=== PATIENT | female | born 1970 | race Hispanic/Latino ===

== ENCOUNTER 2018-09-24 08:32 | Outpatient (CLI) | payer BC ==
--- NOTE | 2018-09-25 13:36 | Magnetic Resonance Report ---
BILATERAL BREAST MRI WITHOUT AND WITH CONTRAST: 09/24/18 08:32:00 CLINICAL: High risk for breast cancer because of family history. COMPARISON:09/13/18 screening mammogram. TECHNIQUE: Axial 1.0-mm T1 without, axial high resolution 2.0-mm T2 and axial 1.0-mm dynamic Vibrant high-resolution postcontrast T1 fat saturation sequences on a 1.5 Sandra magnet. The examination was performed with an 8 channel dedicated [place] breast coil. Post processing with CAD and subtraction was performed on an [employer] workstation. 15.0 cc of Multihance was injected without incident for the contrast portion of the exam. Consent was obtained prior to the administration of the contrast. FINDINGS: Right: Moderate background parenchymal enhancement. An oval smooth T2 hyperintense nonenhancing mass at 9 o'clock approximately 9 cm from the nipple measures 1.2 x 0.8 x 1.3 cm and correlates with a mammographic mass. No suspicious mass or suspicious enhancement. No suspicious lymph nodes. Left: Moderate ground parenchymal enhancement. No mass or suspicious enhancement. No suspicious lymph nodes. IMPRESSION: 1. A benign 1.3 cm right breast mass at 9 o'clock 9 cm from the nipple. 2. No suspicious mass or enhancement. 3. Recommend routine mammographic screening. BI-RADS 2 - - Benign
== END 2018-09-24 08:33 | disposition home or self-care (01) ==
LOC: SPVIMAG 08:32
PROVIDERS: ATTEND Surgery
DX: N63.13 Unspecified lump in the right breast, lower outer quadrant (principal); Z80.3 Family history of malignant neoplasm of breast
CPT/HCPCS: A9577; C8908; 77049

== ENCOUNTER 2020-04-21 13:05 | Outpatient (CLI) | payer BC ==
--- NOTE | 2020-04-21 15:02 | Magnetic Resonance Report ---
Bilateral breast MR without and with contrast. History: Screening breast MRI, patient at high risk for breast malignancy based upon family history. Stereotactic biopsy of the right breast and 2005. Comparison: 09/16/2019, 09/24/2018, 07/02/2015. Technique: Multiplanar multisequence MR images of the breast were obtained before and after the intra venous administration of intravenous contrast. Post processing analysis and review was performed on a separate computer workstation. Findings: Breast composition is heterogenously dense. There is mild background parenchymal enhancement bilatera lly. RIGHT BREAST: Located within the right breast at the 9:00 posterior position is a stable 9 x 10 x 11 mm oval enhancing mass. This is unchanged from prior MRI and is mammographically stable dating back t o at least 2015. Long-term stability would support a benign etiology. No suspicious enhancing mass, d ominant focus, or other abnormal enhancement is identified. LEFT BREAST: No enhancing mass, dominant focus, or other abnormal enhancement is identified. No abnormal axillary or internal mammary lymph nodes. Impression: No evidence of breast malignancy. Stable benign right breast mass at the 9:00 posterior position. Patient will be due for annual screening mammogram in September 2020. BIRADS 2: Benign A normal MRI does not exclude the presence of some forms of breast malignancy as literature reports s uggest that some forms of ductal carcinoma in situ or lobular carcinoma, particularly, may not be det ected on MRI. The sensitivity and specificity of MRI for cancers under 5 mm may be reduced. MRI does not replace the recommendation for annual conventional mammographic evaluation and should be used as an adjunct to mammography and physical examination as necessary. Signer Name: Johnathan Lagunas MD Signed: 04/21/2020 2:57 PM Workstation Name: [id number]
== END 2020-04-21 13:06 | disposition home or self-care (01) ==
LOC: SPVIMAG 13:05
PROVIDERS: ATTEND Surgery
DX: N63.15 Unspecified lump in the right breast, overlapping quadrants (principal); N60.11 Diffuse cystic mastopathy of right breast; N60.12 Diffuse cystic mastopathy of left breast; Z80.3 Family history of malignant neoplasm of breast
CPT/HCPCS: A9575; C8908; 77049

== ENCOUNTER 2020-09-16 15:34 | Outpatient (CLI) | payer BC ==
--- NOTE | 2020-09-16 17:06 | Mammography Report ---
DIGITAL SCREENING MAMMOGRAM WITH TOMOSYNTHESIS WITH CAD, 09/16/2020 CLINICAL INFORMATION / INDICATION: Screening TECHNIQUE: Digital bilateral 2D and 3D mammography with tomosynthesis was obtained in the craniocaud al and mediolateral oblique projections. Computer-Aided Detection (CAD) analysis was used for interp retation of this study. COMPARISON: 09/16/2019 FINDINGS: Breast Density: The breasts are heterogeneously dense, which may obscure small masses. No dominant mass, suspicious calcifications, or architectural distortion in either breast. Right biopsy changes are again seen. Right density is stable. IMPRESSION: No mammographic evidence of malignancy. Follow up recommendation: Routine yearly BI-RADS Category 2: Benign. A "normal" or negative report should not discourage follow up or biopsy of a clinically significant f inding. A written summary of these findings will be mailed to the patient. The patient will be entered into a mammography reporting system which will generate a reminder letter for the patient's next appointmen t at the appropriate interval. The [employer] recommends yearly mammograms starting at age 40 and continuing as l pelon as a woman is in good health. Breast MRI is recommended for women with an approximate 20-25% or greater lifetime risk of breast cancer, including women with a strong family history of breast or ova rosemarie cancer or who have been treated for Hodgkin's disease. Signer Name: Cam Kapadia MD Signed: 09/16/2020 5:01 PM Workstation Name: [id number]
== END 2020-09-16 15:35 | disposition home or self-care (01) ==
LOC: SPVWC 15:34
PROVIDERS: ATTEND Surgery
DX: Z12.31 Encounter for screening mammogram for malignant neoplasm of breast (principal)
CPT/HCPCS: 77063; 77067